=== PATIENT | male | born 1945 | race Caucasian/White ===

== ENCOUNTER 2021-09-05 12:00 | Day surgery (SDC) | payer MEDICARE, OTHER ==
[2021-09-05] MEDS ORDERED: Phenylephrine 2.5% Ophth Soln 5 ML BOT ONE (13:08)
[2021-09-05] MEDS ORDERED: Cyclopentolate 1% Opth Drop 2 ML BOT ONE (13:08)
[2021-09-05] MEDS ORDERED: EPINEPHrine 0.3 MG in Ophthalmic Irrigation Solution 500 ML IRR SCH (13:30)
[2021-09-05] MEDS ORDERED: Fentanyl 100 MCG/2 ML VIAL ONE (14:51)
[2021-09-05] MEDS ORDERED: Midazolam HCl 2 mg/2 ml Vial ONE (14:51)
[2021-09-05] MEDS ORDERED: Triamcinolone 40 MG/ML VIAL ONE (15:07)
[2021-09-05] MEDS ORDERED: Lidocaine 1% PF 5 ML VIAL ONE ×2 (15:07)
[2021-09-05] MEDS ORDERED: Bupivacaine 0.75% 10 ML VIAL ONE (15:07)
[2021-09-05] MEDS ORDERED: CEFAZOLIN 1 GM VIAL ONE (15:07)
[2021-09-05] MEDS ORDERED: Lidocaine 4% PF 5 ML AMP ONE (15:07)
[2021-09-05] MEDS ORDERED: PROPOFOL 200 MG/20 ML VIAL ONE (15:07)
[2021-09-05] MEDS ORDERED: Maxitrol 0.1% Opth Oint 3.5 GM TUBE ONE (15:07)
== END 2021-09-05 17:15 | disposition home or self-care (01) ==
LOC: EDBD 12:00 → SDC 12:00
PROVIDERS: ATTEND Ophthalmology Retina Specialist
PROC: 08T53ZZ Resection of Left Vitreous, Percutaneous Approach (ICD-10-PCS; principal; 2021-09-05)
DX: H33.022 Retinal detachment with multiple breaks, left eye (principal)
CPT/HCPCS: 67025; J0171; J0690; J2250; J2704; J3010; J3301; J3490

== ENCOUNTER 2021-10-24 07:43 | Day surgery (SDC) | payer MEDICARE, OTHER ==
[2021-10-20 09:33] VITALS: BMI 24.5
[~2021-10-24 07:43] MED LIST: EPINEPHrine 0.3 MG in Ophthalmic Irrigation Solution 500 ML IRR SCH; Midazolam HCl 2 mg/2 ml Vial ONE; fentaNYL Citrate/PF 100 MCG/2 ML SYRINGE ONE
[2021-10-24] MEDS ORDERED: Cyclopentolate 1% Opth Drop 2 ML BOT ONE (08:25)
[2021-10-24] MEDS ORDERED: Phenylephrine 2.5% Ophth Soln 5 ML BOT ONE (08:25)
[2021-10-24] MEDS ORDERED: Indocyanine Green 25 MG/10 ML VIAL ONE (09:34)
[2021-10-24] MEDS ORDERED: Lidocaine 4% PF 5 ML AMP ONE (09:34)
[2021-10-24] MEDS ORDERED: Maxitrol 0.1% Opth Oint 3.5 GM TUBE ONE (09:34)
[2021-10-24] MEDS ORDERED: Lidocaine 1% PF 5 ML VIAL ONE (09:34)
[2021-10-24] MEDS ORDERED: Bupivacaine 0.75% 10 ML VIAL ONE (09:34)
[2021-10-24] MEDS ORDERED: CEFAZOLIN 1 GM VIAL ONE (09:34)
[2021-10-24] MEDS ORDERED: PROPOFOL 200 MG/20 ML VIAL ONE (09:34)
[2021-10-24] MEDS ORDERED: Triamcinolone 40 MG/ML VIAL ONE (09:34)
== END 2021-10-24 11:36 | disposition home or self-care (01) ==
LOC: SDC 07:43
PROVIDERS: ATTEND Ophthalmology Retina Specialist
PROC: 08T43ZZ Resection of Right Vitreous, Percutaneous Approach (ICD-10-PCS; principal; 2021-10-24)
PROC: 08NE3ZZ Release Right Retina, Percutaneous Approach (ICD-10-PCS; 2021-10-24)
DX: H35.341 Macular cyst, hole, or pseudohole, right eye (principal); Z20.822 Contact with and (suspected) exposure to COVID-19
CPT/HCPCS: 67025; 87811; J0171; J0690; J2250; J2704; J3301; J3490